=== PATIENT | female | born 1970 | race Caucasian/White ===

== ENCOUNTER 2020-12-18 08:24 | Emergency (ER) | payer OTHER ==
[~2020-12-18] VITALS: Ht 162.6 cm; Wt 79.4 kg
[2020-12-18 08:25] VITALS: BP 144/70
[2020-12-18] MEDS ORDERED: PROTONIX40 MG PO (09:22)
== END 2020-12-18 10:10 | disposition home or self-care (01) ==
LOC: ER 08:24
DX: J02.9 Acute pharyngitis, unspecified (principal); F17.210 Nicotine dependence, cigarettes, uncomplicated; Z88.6 Allergy status to analgesic agent; Z88.1 Allergy status to other antibiotic agents; Z88.2 Allergy status to sulfonamides; Z91.018 Allergy to other foods